=== PATIENT | female | born 1945 | race Caucasian/White ===

== ENCOUNTER 2017-10-09 08:11 | Inpatient (IN) | payer MEDICARE, BC ==
[~2017-10-09] VITALS: Ht 165.1 cm; Wt 47.7 kg
[~2017-10-09 08:11] MED LIST: ALBU6.7H INH; AMLO5TAB PO; ASPI81TA30 PO; ATOR20TA PO; CLOT10TR5 PO; DIAZ2TAB3 PO; GABA-530 PO; LEVO137T2 PO; LEVO500T2 PO; LISI10TA4 PO; PRED10TA23 PO; QUET25TA PO
[2017-10-09 08:57] LABS: BASOPHILS # (AUTO) 0.1 X10'3 (0-0.2); BASOPHILS % (AUTO) 1.1 % (0-1); EOSINOPHILS # (AUTO) 0.6 X10'3 (0-0.9); EOSINOPHILS % (AUTO) 7.8 % (0-6); HEMATOCRIT 32.3 % (35.0-45.0); HEMOGLOBIN 10.8 g/dl (12.0-16.0); LYMPHOCYTES # (AUTO) 1.3 X10'3 (1.1-4.8); LYMPHOCYTES % (AUTO) 17.2 % (21-51); MEAN CORPUSCULAR HEMOGLOBIN 30.2 PG (27.0-31.0); MEAN CORPUSCULAR HGB CONC 33.3 % (33.0-36.5); MEAN CORPUSCULAR VOLUME 90.8 FL (78-98); MEAN PLATELET VOLUME 7.9 FL (7.4-10.4); MONOCYTES # (AUTO) 0.6 X10'3 (0-0.9); MONOCYTES % (AUTO) 7.8 % (2-12); NEUTROPHILS # (AUTO) 5.1 X10'3 (1.8-7.7); NEUTROPHILS % (AUTO) 66.1 % (42-75); PLATELET COUNT 256 X10'3 (140-440); RED BLOOD COUNT 3.56 X10'6 (4.20-5.60); RED CELL DISTRIBUTION WIDTH 14.3 % (11.5-14.5); WHITE BLOOD COUNT 7.7 X10'3 (4.5-11.0)
[2017-10-09 09:14] LABS: PARTIAL THROMBOPLASTIN TIME 31 SECONDS (22-32); PROTHROMBIN TIME 10.5 SECONDS (9.0-12.0)
[2017-10-09 09:19] LABS: ALANINE AMINOTRANSFERASE 17 U/L (12-78); ALBUMIN 3.2 G/DL (3.4-5.0); ALBUMIN/GLOBULIN RATIO 0.9 (1.1-1.5); ALKALINE PHOSPHATASE 69 IU/L (46-116); ANION GAP 10 (8-16); ASPARTATE AMINO TRANSFERASE 24 U/L (10-37); BILIRUBIN,TOTAL 0.3 MG/DL (0.1-1.0); BLOOD UREA NITROGEN 16 MG/DL (7-18); BUN/CREATININE RATIO 14.7 (6.6-38.0); CALCIUM 8.7 MG/DL (8.5-10.1); CHLORIDE 108 MMOL/L (99-107); CREATININE 1.09 MG/DL (0.40-0.90); GLUCOSE 114 MG/DL (70-104); POTASSIUM 3.6 MMOL/L (3.5-5.1); SODIUM 144 MMOL/L (135-145); TOTAL CARBON DIOXIDE 26.5 MMOL/L (24-32); TOTAL PROTEIN 6.8 G/DL (6.4-8.2); eGFR 49 ML/MIN
[2017-10-09] MEDS ORDERED: normal saline 1000ML IV soln IVB ONE (10:10)
[2017-10-09] MEDS ORDERED: mag hydrox/Alum hydrox/simeth 30ml oral suspension PO PRN (10:30)
[2017-10-09] MEDS ORDERED: ondansetron/PF 4mg/2ml inj IV PRN (10:30)
[2017-10-09] MEDS ORDERED: acetaminophen 325mg tablet PO PRN (10:30)
[2017-10-09] MEDS ORDERED: magnesium hydroxide 30ml (MOM) UD suspension PO PRN (10:30)
[2017-10-09] MEDS ORDERED: TIOT4MIS5 INH (10:34)
[2017-10-09] MEDS ORDERED: ALB0.5UD IH (10:35)
[2017-10-09] MEDS ORDERED: FERR325T28 PO (10:36)
[2017-10-09] MEDS ORDERED: LISI-600 PO (10:39)
[2017-10-09] MEDS ORDERED: OXYC-149 PO (10:43)
[2017-10-09 11:30] VITALS: BP 151/44
[2017-10-09 11:43] LABS: CLARITY,URINE Clear (Clear); COLOR,URINE Yellow (Yellow); GLUCOSE, URINE Negative (Neg); KETONES,URINE Negative (Neg); LEUKOCYTE ESTERASE ,URINE Negative (Neg); NITRITES, URINE Negative (Neg); OCCULT BLOOD,URINE Negative (Neg); PROTEIN,URINE Negative (Neg); UROBILINOGEN,URINE 0.2 E.U/dL (0.2-1.0)
[2017-10-09 11:45] LABS: UA COLLECTION TYPE CLN CATCH MIDSTREAM
[2017-10-09] MEDS: HYDROcodone/acetaminophen 10/325mg tab PO PRN ×2 (13:16→19:36)
[2017-10-09] MEDS: nystatin 500,000 unit/5ML UD oral suspension PO SCH ×2 (13:17→21:05)
[2017-10-09] MEDS: normal saline 1000ml 1,000 ML IV SCH (13:31)
[2017-10-09] MEDS: CEFAZOLIN IV SCH (16:06)
[2017-10-09] MEDS: [UNRECOGNIZED DRUG - OTHER] IV SCH (16:06)
[2017-10-09] MEDS: diazepam 2mg tablet PO PRN (16:06)
[2017-10-09] MEDS ORDERED: albuterol 2.5 MG/3 ML nebule NEB PRN ×2 (16:50)
[2017-10-09 18:00] VITALS: BP 161/75
[2017-10-09] MEDS: gabapentin 100mg capsule PO SCH (19:36)
[2017-10-09] MEDS: heparin, porcine 5000 units/ml vial SQ SCH (19:37)
[2017-10-09] MEDS: ipratropium 0.5 MG/2.5ML nebule IH SCH (20:39)
[2017-10-09] MEDS: albuterol 2.5 MG/3 ML nebule NEB SCH (20:39)
[2017-10-09] MEDS: atorvastatin 20mg tablet PO SCH (21:05)
[2017-10-09] MEDS: temazepam 15mg capsule PO PRN (21:05)
[2017-10-09 22:00] VITALS: BP 158/57
[2017-10-10] MEDS: normal saline 1000ml 1,000 ML IV SCH ×2 (00:25→11:22)
[2017-10-10] MEDS: [UNRECOGNIZED DRUG - OTHER] IV SCH ×4 (01:01→17:03)
[2017-10-10] MEDS: CEFAZOLIN IV SCH ×4 (01:01→17:03)
[2017-10-10] MEDS: ipratropium 0.5 MG/2.5ML nebule IH SCH ×4 (02:36→20:32)
[2017-10-10] MEDS: HYDROcodone/acetaminophen 10/325mg tab PO PRN ×3 (03:44→19:12)
[2017-10-10 05:14] LABS: BASOPHILS # (AUTO) 0.1 X10'3 (0-0.2); BASOPHILS % (AUTO) 1.3 % (0-1); EOSINOPHILS # (AUTO) 0.4 X10'3 (0-0.9); EOSINOPHILS % (AUTO) 5.7 % (0-6); HEMATOCRIT 33.9 % (35.0-45.0); HEMOGLOBIN 10.9 g/dl (12.0-16.0); LYMPHOCYTES # (AUTO) 1.5 X10'3 (1.1-4.8); MEAN CORPUSCULAR HEMOGLOBIN 29.5 PG (27.0-31.0); MEAN CORPUSCULAR HGB CONC 32.1 % (33.0-36.5); MEAN CORPUSCULAR VOLUME 91.9 FL (78-98); MEAN PLATELET VOLUME 8.3 FL (7.4-10.4); MONOCYTES # (AUTO) 0.5 X10'3 (0-0.9); MONOCYTES % (AUTO) 7.4 % (2-12); NEUTROPHILS # (AUTO) 4.8 X10'3 (1.8-7.7); NEUTROPHILS % (AUTO) 65.6 % (42-75); PLATELET COUNT 221 X10'3 (140-440); RED BLOOD COUNT 3.69 X10'6 (4.20-5.60); RED CELL DISTRIBUTION WIDTH 15.2 % (11.5-14.5); WHITE BLOOD COUNT 7.4 X10'3 (4.5-11.0)
[2017-10-10 05:40] LABS: ALBUMIN 2.7 G/DL (3.4-5.0); ANION GAP 9 (8-16); BLOOD UREA NITROGEN 8 MG/DL (7-18); BUN/CREATININE RATIO 8.8 (6.6-38.0); CALCIUM 8.1 MG/DL (8.5-10.1); CHLORIDE 108 MMOL/L (99-107); CREATININE 0.91 MG/DL (0.40-0.90); GLUCOSE 83 MG/DL (70-104); POTASSIUM 3.5 MMOL/L (3.5-5.1); SODIUM 143 MMOL/L (135-145); TOTAL CARBON DIOXIDE 25.8 MMOL/L (24-32); eGFR 61 ML/MIN
[2017-10-10 06:00] VITALS: BP 154/65
[2017-10-10 06:48] VITALS: BP_SYST 136; BP_SYST 156; BP_SYST 158; BP_DIAS 63; BP_DIAS 76; BP_DIAS 79
[2017-10-10] MEDS: ferrous sulfate 325mg tablet PO SCH (07:43)
[2017-10-10] MEDS: levoTHYROXINE 112mcg tablet PO SCH (07:43)
[2017-10-10] MEDS: diazepam 2mg tablet PO PRN ×2 (07:43→22:50)
[2017-10-10] MEDS: lisinopril 20mg tablet PO SCH (07:44)
[2017-10-10] MEDS: nystatin 500,000 unit/5ML UD oral suspension PO SCH ×3 (07:44→19:11)
[2017-10-10] MEDS: gabapentin 100mg capsule PO SCH ×2 (07:45→19:11)
[2017-10-10] MEDS: aspirin 81mg tablet.DR PO SCH (07:45)
[2017-10-10] MEDS: heparin, porcine 5000 units/ml vial SQ SCH ×2 (07:54→19:11)
[2017-10-10 08:00] VITALS: BP_SYST 136; BP_SYST 156; BP_SYST 158; BP_DIAS 63; BP_DIAS 76; BP_DIAS 79
[2017-10-10] MEDS: albuterol 2.5 MG/3 ML nebule NEB SCH ×3 (09:06→20:32)
[2017-10-10] MEDS: nicotine 14mg patch - 24hr TD SCH (09:25)
[2017-10-10 10:00] VITALS: BP 141/61
[2017-10-10] MEDS ORDERED: LORazepam 2 mg/ml vial IV ONE (12:50)
[2017-10-10 18:00] VITALS: BP 137/85
[2017-10-10] MEDS: atorvastatin 20mg tablet PO SCH (19:11)
[2017-10-10 22:00] VITALS: BP 141/61
[2017-10-11] MEDS: CEFAZOLIN IV SCH ×3 (00:04→15:31)
[2017-10-11] MEDS: [UNRECOGNIZED DRUG - OTHER] IV SCH ×3 (00:04→15:31)
[2017-10-11] MEDS: normal saline 1000ml 1,000 ML IV SCH ×4 (00:13→22:27)
[2017-10-11] MEDS: HYDROcodone/acetaminophen 10/325mg tab PO PRN ×4 (02:21→20:13)
[2017-10-11] MEDS: ipratropium 0.5 MG/2.5ML nebule IH SCH ×4 (02:29→20:24)
[2017-10-11 05:00] VITALS: BP 107/53
[2017-10-11] MEDS: levoTHYROXINE 112mcg tablet PO SCH (07:00)
[2017-10-11 07:06] LABS: BASOPHILS # (AUTO) 0.1 X10'3 (0-0.2); BASOPHILS % (AUTO) 1.3 % (0-1); EOSINOPHILS # (AUTO) 0.4 X10'3 (0-0.9); EOSINOPHILS % (AUTO) 7.3 % (0-6); HEMATOCRIT 29.4 % (35.0-45.0); HEMOGLOBIN 9.5 g/dl (12.0-16.0); LYMPHOCYTES # (AUTO) 1.5 X10'3 (1.1-4.8); LYMPHOCYTES % (AUTO) 31.4 % (21-51); MEAN CORPUSCULAR HEMOGLOBIN 29.7 PG (27.0-31.0); MEAN CORPUSCULAR HGB CONC 32.2 % (33.0-36.5); MEAN CORPUSCULAR VOLUME 92.3 FL (78-98); MEAN PLATELET VOLUME 8.1 FL (7.4-10.4); MONOCYTES # (AUTO) 0.5 X10'3 (0-0.9); NEUTROPHILS # (AUTO) 2.4 X10'3 (1.8-7.7); PLATELET COUNT 199 X10'3 (140-440); RED BLOOD COUNT 3.19 X10'6 (4.20-5.60); RED CELL DISTRIBUTION WIDTH 15.4 % (11.5-14.5); WHITE BLOOD COUNT 4.9 X10'3 (4.5-11.0)
[2017-10-11 07:28] LABS: ALBUMIN 2.4 G/DL (3.4-5.0); ANION GAP 6 (8-16); BLOOD UREA NITROGEN 9 MG/DL (7-18); CALCIUM 7.8 MG/DL (8.5-10.1); CHLORIDE 112 MMOL/L (99-107); GLUCOSE 104 MG/DL (70-104); POTASSIUM 3.6 MMOL/L (3.5-5.1); SODIUM 144 MMOL/L (135-145); TOTAL CARBON DIOXIDE 26.3 MMOL/L (24-32); eGFR 61 ML/MIN
[2017-10-11 08:00] VITALS: BP_SYST 136; BP_SYST 143; BP_SYST 150; BP_DIAS 52; BP_DIAS 64; BP_DIAS 73
[2017-10-11] MEDS: albuterol 2.5 MG/3 ML nebule NEB SCH ×3 (08:00→20:24)
[2017-10-11] MEDS: nicotine 14mg patch - 24hr TD SCH (08:00)
[2017-10-11] MEDS: ferrous sulfate 325mg tablet PO SCH (08:02)
[2017-10-11] MEDS: aspirin 81mg tablet.DR PO SCH (08:02)
[2017-10-11] MEDS: lisinopril 20mg tablet PO SCH (08:02)
[2017-10-11] MEDS: gabapentin 100mg capsule PO SCH ×2 (08:02→20:08)
[2017-10-11] MEDS: heparin, porcine 5000 units/ml vial SQ SCH ×2 (08:03→20:08)
[2017-10-11] MEDS: nystatin 500,000 unit/5ML UD oral suspension PO SCH ×3 (08:29→23:01)
[2017-10-11 18:00] VITALS: BP 142/67
[2017-10-11] MEDS: diazepam 2mg tablet PO PRN (20:10)
[2017-10-11] MEDS: atorvastatin 20mg tablet PO SCH (20:11)
[2017-10-11 22:00] VITALS: BP 145/70
[2017-10-11] MEDS: temazepam 15mg capsule PO PRN (23:04)
[2017-10-12] VITALS (7 sets, daily range): BP systolic 121–161; BP diastolic 52–82
[2017-10-12] MEDS: CEFAZOLIN IV SCH ×4 (00:18→23:48)
[2017-10-12] MEDS: [UNRECOGNIZED DRUG - OTHER] IV SCH ×4 (00:18→23:48)
[2017-10-12] MEDS: ipratropium 0.5 MG/2.5ML nebule IH SCH (03:28)
[2017-10-12] MEDS: HYDROcodone/acetaminophen 10/325mg tab PO PRN ×4 (05:21→23:48)
[2017-10-12 07:20] LABS: BASOPHILS # (AUTO) 0.1 X10'3 (0-0.2); EOSINOPHILS # (AUTO) 0.4 X10'3 (0-0.9); EOSINOPHILS % (AUTO) 7.9 % (0-6); HEMATOCRIT 30.1 % (35.0-45.0); HEMOGLOBIN 9.7 g/dl (12.0-16.0); LYMPHOCYTES # (AUTO) 1.3 X10'3 (1.1-4.8); LYMPHOCYTES % (AUTO) 26.2 % (21-51); MEAN CORPUSCULAR HEMOGLOBIN 29.9 PG (27.0-31.0); MEAN CORPUSCULAR HGB CONC 32.2 % (33.0-36.5); MEAN PLATELET VOLUME 8.6 FL (7.4-10.4); MONOCYTES # (AUTO) 0.5 X10'3 (0-0.9); MONOCYTES % (AUTO) 9.4 % (2-12); NEUTROPHILS # (AUTO) 2.8 X10'3 (1.8-7.7); NEUTROPHILS % (AUTO) 55.5 % (42-75); PLATELET COUNT 193 X10'3 (140-440); RED BLOOD COUNT 3.24 X10'6 (4.20-5.60); RED CELL DISTRIBUTION WIDTH 15.4 % (11.5-14.5); WHITE BLOOD COUNT 5.1 X10'3 (4.5-11.0)
[2017-10-12 07:46] LABS: ALBUMIN 2.4 G/DL (3.4-5.0); ANION GAP 8 (8-16); BLOOD UREA NITROGEN 8 MG/DL (7-18); BUN/CREATININE RATIO 9.4 (6.6-38.0); CALCIUM 7.7 MG/DL (8.5-10.1); CHLORIDE 112 MMOL/L (99-107); CREATININE 0.85 MG/DL (0.40-0.90); GLUCOSE 128 MG/DL (70-104); POTASSIUM 3.7 MMOL/L (3.5-5.1); SODIUM 144 MMOL/L (135-145); TOTAL CARBON DIOXIDE 23.9 MMOL/L (24-32); eGFR 66 ML/MIN
[2017-10-12] MEDS: nicotine 14mg patch - 24hr TD SCH (08:00)
[2017-10-12] MEDS: ferrous sulfate 325mg tablet PO SCH (08:11)
[2017-10-12] MEDS: levoTHYROXINE 112mcg tablet PO SCH (08:11)
[2017-10-12] MEDS: aspirin 81mg tablet.DR PO SCH (08:11)
[2017-10-12] MEDS: nystatin 500,000 unit/5ML UD oral suspension PO SCH ×3 (08:12→20:19)
[2017-10-12] MEDS: gabapentin 100mg capsule PO SCH ×2 (08:12→20:17)
[2017-10-12] MEDS: lisinopril 20mg tablet PO SCH (08:12)
[2017-10-12] MEDS: heparin, porcine 5000 units/ml vial SQ SCH ×2 (08:12→20:21)
[2017-10-12] MEDS ORDERED: ipratropium/albuterol 3ml nebule ONE (08:46)
[2017-10-12] MEDS: normal saline 1000ml 1,000 ML IV SCH ×2 (08:55→20:27)
[2017-10-12] MEDS ORDERED: ipratropium 0.5 MG/2.5ML nebule IH SCH (13:00)
[2017-10-12] MEDS: diazepam 2mg tablet PO PRN (15:43)
[2017-10-12] MEDS: ipratropium/albuterol 3ml nebule NEB SCH ×2 (16:26→23:01)
[2017-10-12] MEDS: atorvastatin 20mg tablet PO SCH (20:18)
[2017-10-12] MEDS: temazepam 15mg capsule PO PRN (23:48)
[2017-10-13 05:00] VITALS: BP 151/63
[2017-10-13] MEDS: HYDROcodone/acetaminophen 10/325mg tab PO PRN ×3 (05:24→17:28)
[2017-10-13 06:02] LABS: BASOPHILS # (AUTO) 0.1 X10'3 (0-0.2); BASOPHILS % (AUTO) 1.2 % (0-1); EOSINOPHILS # (AUTO) 0.4 X10'3 (0-0.9); EOSINOPHILS % (AUTO) 7.3 % (0-6); HEMATOCRIT 29.5 % (35.0-45.0); HEMOGLOBIN 9.5 g/dl (12.0-16.0); LYMPHOCYTES # (AUTO) 1.2 X10'3 (1.1-4.8); LYMPHOCYTES % (AUTO) 24.4 % (21-51); MEAN CORPUSCULAR HEMOGLOBIN 29.9 PG (27.0-31.0); MEAN CORPUSCULAR HGB CONC 32.2 % (33.0-36.5); MEAN CORPUSCULAR VOLUME 92.8 FL (78-98); MEAN PLATELET VOLUME 8.7 FL (7.4-10.4); MONOCYTES # (AUTO) 0.5 X10'3 (0-0.9); MONOCYTES % (AUTO) 9.9 % (2-12); NEUTROPHILS # (AUTO) 2.9 X10'3 (1.8-7.7); NEUTROPHILS % (AUTO) 57.2 % (42-75); PLATELET COUNT 197 X10'3 (140-440); RED BLOOD COUNT 3.18 X10'6 (4.20-5.60); RED CELL DISTRIBUTION WIDTH 15.6 % (11.5-14.5); WHITE BLOOD COUNT 5.1 X10'3 (4.5-11.0)
[2017-10-13 06:21] LABS: ALBUMIN 2.4 G/DL (3.4-5.0); ANION GAP 8 (8-16); BLOOD UREA NITROGEN 10 MG/DL (7-18); BUN/CREATININE RATIO 10.8 (6.6-38.0); CALCIUM 8.1 MG/DL (8.5-10.1); CHLORIDE 112 MMOL/L (99-107); CREATININE 0.93 MG/DL (0.40-0.90); GLUCOSE 99 MG/DL (70-104); POTASSIUM 3.8 MMOL/L (3.5-5.1); SODIUM 147 MMOL/L (135-145); TOTAL CARBON DIOXIDE 26.9 MMOL/L (24-32); eGFR 59 ML/MIN
[2017-10-13] MEDS: normal saline 1000ml 1,000 ML IV SCH ×2 (07:29→14:27)
[2017-10-13] MEDS: levoTHYROXINE 112mcg tablet PO SCH (07:30)
[2017-10-13] MEDS: CEFAZOLIN IV SCH ×2 (07:30→16:22)
[2017-10-13] MEDS: [UNRECOGNIZED DRUG - OTHER] IV SCH ×2 (07:30→16:22)
[2017-10-13] MEDS: aspirin 81mg tablet.DR PO SCH (07:31)
[2017-10-13] MEDS: nystatin 500,000 unit/5ML UD oral suspension PO SCH ×2 (07:31→11:55)
[2017-10-13] MEDS: lisinopril 20mg tablet PO SCH (07:31)
[2017-10-13] MEDS: gabapentin 100mg capsule PO SCH (07:31)
[2017-10-13] MEDS: ferrous sulfate 325mg tablet PO SCH (07:31)
[2017-10-13] MEDS: nicotine 14mg patch - 24hr TD SCH (07:32)
[2017-10-13] MEDS: heparin, porcine 5000 units/ml vial SQ SCH (07:32)
[2017-10-13] MEDS ORDERED: silver sulfadiazine cream 400gm jar TP SCH (08:00)
[2017-10-13] MEDS: ipratropium/albuterol 3ml nebule NEB SCH ×3 (09:19→20:11)
[2017-10-13 10:00] VITALS: BP_SYST 141; BP_SYST 145; BP_SYST 150; BP_SYST 152; BP_DIAS 58; BP_DIAS 64; BP_DIAS 74; BP_DIAS 86
[2017-10-13] MEDS ORDERED: HYDR-3972 PO (12:47)
[2017-10-13] MEDS ORDERED: SILV20CR13 TP (12:47)
[2017-10-13] MEDS ORDERED: AMOX-580 PO (12:47)
[2017-10-13] MEDS ORDERED: NICO-631 TD (12:47)
[2017-10-13] MEDS ORDERED: NYST1000 PO (12:47)
[2017-10-13] MEDS ORDERED: lactobacillus rhamnosus 10,000 MMU CELLS/CAPSULE PO SCH (17:30)
[2017-10-13 20:30] VITALS: BP 133/94
== END 2017-10-13 20:30 | DRG 603 ==
LOC: ER 08:12 → OBSVTOIN 10:27 → ED HOLD 10:27 → ORTHO 4S 11:29
PROVIDERS: ADMIT Family Medicine; ATTEND Family Medicine
DX: L03.115 Cellulitis of right lower limb (principal); B37.0 Candidal stomatitis; G62.9 Polyneuropathy, unspecified; L97.519 Non-pressure chronic ulcer of other part of right foot with unspecified severity; I65.22 Occlusion and stenosis of left carotid artery; E86.0 Dehydration; I35.0 Nonrheumatic aortic (valve) stenosis; E03.9 Hypothyroidism, unspecified; E78.5 Hyperlipidemia, unspecified; F41.9 Anxiety disorder, unspecified; R55 Syncope and collapse; I10 Essential (primary) hypertension; J44.9 Chronic obstructive pulmonary disease, unspecified; L03.116 Cellulitis of left lower limb; M40.209 Unspecified kyphosis, site unspecified; R41.3 Other amnesia; E78.00 Pure hypercholesterolemia, unspecified; I73.9 Peripheral vascular disease, unspecified; F17.200 Nicotine dependence, unspecified, uncomplicated; I25.2 Old myocardial infarction; Z88.8 Allergy status to other drugs, medicaments and biological substances; Z88.5 Allergy status to narcotic agent; Z79.82 Long term (current) use of aspirin; Z86.73 Personal history of transient ischemic attack (TIA), and cerebral infarction without residual deficits; Z83.3 Family history of diabetes mellitus
CPT/HCPCS: 36415; 70450; 71010; 80048; 80053; 81003; 84484; 85025; 85610; 85730; 87070; 93005; 93306; 93880; 94640; 94760; 96360; 97116; 97161; 97530; 99285; A6196; A6209; A6212; A6213; A6222; A6223; A6446; A6449; J0690; J1644; J2060; J7030